=== PATIENT | female | born 1995 | race Caucasian/White ===

== ENCOUNTER 2025-08-09 15:09 | Emergency (ER) | payer BC, SELFPAY ==
[2025-08-09 15:16] VITALS: BP 144/99; PULSE 98; TEMP 37; O2SAT 97; BMI 41.6
--- NOTE | 2025-08-09 15:33 | CT_ITS ---
The [address] [address] Patient Name: MIK SAUCEDO MRN: [id number] date: 1995 Sex: F Assigned Patient Location: ED.MAIN Current Patient Location: ED.MAIN Accession/Order Number: [id number] Exam Date: 08/09/2025 16:30 Report Date: 08/09/2025 16:59 At the request of: KENDELL ISBELL Procedure: CT soft tissue neck w con CT soft tissue neck w con 08/09/2025 4:35 PM SIGNS AND SYMPTOMS: ^R Lower jaw abscess, [place] teeth removed 2 mo ago CONTRAST: TECHNIQUE: Multidetector CT axial slices of the soft tissues of the neck were obtained with IV contrast. Sagittal and coronal reformats were reconstructed. CT was performed with one or more of the following dose reduction techniques: Automated exposure control, adjustment of the mA and/or kV according to patient size, or use of iterative reconstruction technique. COMPARISON: None FINDINGS: Evidence Of Bilateral Mandibular And Maxillary Third Molar Extraction. At The Level Of The Right Maxillary Third Molar Resection Site, There Is Evidence Of Cellulitis Within The Adjacent Soft Tissues Notably At Along The Right Masseter Muscle And Right Platysma Muscle. No Loculated Or Enhancing Fluid Identified To Suggest Abscess Measures. No Underlying Osseous Erosions Involving The Mandible As Visualized. The nasopharynx, oropharynx, hypopharynx, glottic, and subglottic regions are unremarkable. The parotid glands, submandibular, and the thyroid gland are within normal limits. The visualized lung parenchyma shows no acute pathology. No acute bony abnormalities are appreciated. CT/CT soft tissue neck w con IMPRESSION: Right sided cellulitis involving the submandibular space and the director records management space. No definite abscess identified this time. Impression dictated by: Fletcher Gaviria M.D. 08/09/2025 4:59 PM Dictation Location: [place] [address] Electronically authenticated by: [id number] Y Date: 08/09/2025 16:59
--- NOTE | 2025-08-09 15:45 | ED.GENADUL1 ---
HPI HPI - General Adult General Chief complaint: Dental/Oral Stated complaint: WISDOM TEETH OUT/ PROBLEMS FROM IT Time Seen by Provider: 08/09/25 15:15 Source: patient Mode of arrival: walk-in Limitations: no limitations History of Present Illness HPI narrative: 29-year-old female presents to the emergency department with complaints of right lower jaw pain that developed this morning. She reports nausea and cold sweats with this. She did have all 4 of her wisdom teeth removed 2 months ago at [facility]. She had an infection in the right lower wisdom tooth area about a month ago. The oral surgeon did an I&D and placed her on Augmentin. She has not had an issue until this morning and states that she was able to express some yellowish fluid through her gum this morning by pushing on her jaw. She did present initially to urgent care who referred her here. Related Data Previous Rx's ?Medication ?Instructions ?Recorded amoxicillin 875 mg-potassium 1 tab PO BID 10 days #20 tabs 08/09/25 clavulanate 125 mg tablet Allergies Allergy/AdvReac Type Severity Reaction Status Date / Time No Known Drug Allergies Allergy Verified 08/09/25 15:16 Opioid HPI Opioid Management Most Recent Opioid Data: Last Pain Scale 5 Today, 15:54 Last MAR Pain Assessment Today, 15:54 Review of Systems ROS Status of ROS 10 or more systems reviewed and unremarkable except as noted in history and below PFSH PFSH Social History Little interest or pleasure in doing things: not at all Feeling down, depressed, or hopeless: not at all Exam Narrative Exam Narrative: General: No distress, age-appropriate Skin: Warm, dry, no pallor. No rash. Head: Normocephalic, atraumatic. Neck: Supple, mild right shoulder tenderness, swelling as compared to the contralateral side Eye: Pupils are equal, round and EOMI. No scleral icterus. Ears, Nose, Mouth, and Throat: No nasal mucosal hypertrophy. Oral mucosa is moist, mild oropharynx erythema on the right with right mild tonsillar swelling, uvula is mid-line. Cardiovascular: Regular Rate and Rhythm without murmur, gallop or rub. Respiratory: No accessory muscle use or respiratory distress. Lungs are clear to auscultation, no wheezing, rales or rhonchi Musculoskeletal: Full ROM of all extremities, no calf or popliteal tenderness Neurological: A&O x4. No cranial nerve dysfunction observed. No truncal ataxia. Moves all extremities. Sensation intact. Psychiatric: Cooperative and interactive. Normal mood and affect. Constitutional Vital Signs, click to edit/add: Last Vital Signs Temp 98.6 F 08/09/25 15:16 Pulse 85 08/09/25 18:06 Resp 16 08/09/25 18:06 BP 116/88 08/09/25 18:06 Pulse Ox 98 08/09/25 18:06 O2 Del Method Room Air 08/09/25 18:06 Course Vital Signs Vital signs: Vital Signs Temperature 98.6 F 08/09/25 15:16 Pulse Rate 98 H 08/09/25 15:16 Respiratory Rate 16 08/09/25 15:16 Blood Pressure 144/99 H 08/09/25 15:16 Pulse Oximetry 97 08/09/25 15:16 Oxygen Delivery Method Room Air 08/09/25 15:16 Temperature 98.6 F 08/09/25 15:16 Pulse Rate 85 08/09/25 18:06 Respiratory Rate 16 08/09/25 18:06 Blood Pressure 116/88 08/09/25 18:06 Pulse Oximetry 98 08/09/25 18:06 Oxygen Delivery Method Room Air 08/09/25 18:06 Medical Decision Making MDM Narrative Medical decision making narrative: This is a 29-year-old female that presented to the ED with complaints of right-sided jaw pain and swelling that started this morning. She reports nausea and cold sweats as well. She did have a 4 wisdom teeth removed 2 months ago. She reports she had a right lower jaw infection 1 month ago where it sounds like they did an I&D and placed her on Augmentin. She has not had an issue until this morning. On arrival patient is in no distress, there is swelling to the right lower jaw as compared contralaterally. Vital signs are hemodynamically stable. Temperature is afebrile at 98.6 ?F. There is some tonsillar swelling and erythema on the Right. Airway is patient, patient denies SOB or throat swelling feeling. IV placed. Zofran 4mg and Toradol 30mg given IV. CT Neck soft tissue w/ contrast ordered as well as hCG, CBC, and BMP. Labs: No leukocytosis, WBC 9.3, BMP WNL CT soft tissue neck with IV contrast reviewed and notes no abscess, but cellulitis involving the submandibular space and the commercial floor covering installer spaces. 3 g IV Unasyn ordered and given. On reexam patient still reports no issues with swallowing/breathing, there is no increased swelling to the right lower jaw. Pain is controlled. Admission was considered but not indicated as there is no airway compromise (trismus, drooling, tongue elevation, stridor, muffled voice), no rapidly increasing swelling, no fever or systemic signs of infection. Return to the ED precautions were discussed such as trouble swallowing or breathing, shortness of breath, worsening swelling, or uncontrolled pain. Augmentin was prescribed at discharge with plan for close follow up with [facility] within 24-28hrs, who did her wisdom tooth removal. Patient was discharged in stable condition. Differential Diagnosis Differential Diagnosis: Recurrent dental/alveolar abscess, facial cellulitis, Neal's angina Lab Data Lab results reviewed: Yes I reviewed the patient's lab results Labs: Lab Results 08/09/25 Range/Units 15:46 WBC 9.3 (4.0-11.0) 10^3/uL RBC 4.69 (4.20-5.40) 10^6/uL Hgb 14.4 (12.0-16.0) g/dL Hct 42.4 (36.0-48.0) % MCV 90.4 (81.0-99.0) fL MCH 30.7 (26.7-34.0) pg MCHC 34.0 (29.9-35.2) g/dL RDW 12.8 (11.0-15.0) % Plt Count 295 (150-450) 10^3/uL MPV 10.3 (9.5-13.5) fL Neut % (Auto) 69.5 (43.0-75.0) % Lymph % (Auto) 23.1 (20.5-60.0) % [place] % (Auto) 5.7 (1.7-12.0) % Eos % (Auto) 1.1 (0.9-7.0) % Baso % (Auto) 0.4 (0.2-2.0) % Neut # (Auto) 6.5 (1.4-6.5) 10^3/uL Lymph # (Auto) 2.2 (1.2-3.8) 10^3/uL [place] # (Auto) 0.5 (0.3-0.8) 10^3/uL Eos # (Auto) 0.1 (0.0-0.7) 10^3/uL Baso # (Auto) 0.0 (0.0-0.1) 10^3/uL Abs Immat Gran (auto) 0.02 (0.00-0.03) 10^3/uL Imm/Tot Granulo (auto) 0.2 (0.0-0.5) % Sodium 137 (136-145) mmol/L Potassium 4.0 (3.5-5.1) mmol/L Chloride 101 (98-107) mmol/L Carbon Dioxide 24.0 (21.0-32.0) mmol/L Anion Gap 16.0 BUN 8.0 (7.0-18.0) mg/dL Creatinine 0.73 (0.55-1.02) mg/dL Est GFR ( Amer) >60 (>=60 mL/min/1.73m^2) Est GFR (Non-Af Amer) >60 (>=60 mL/min/1.73m^2) BUN/Creatinine Ratio 11.0 Glucose 94 (74-106) mg/dL Calcium 9.2 (8.5-10.1) mg/dL Serum HCG, Qual Negative (NEGATIVE) Imaging Data CT soft tissue neck with contrast: Attestation: I have reviewed the pertinent imaging results. Radiologist's impression: ITS Impressions Soft Tissue Neck CT 08/09/25 15:33 IMPRESSION: Right sided cellulitis involving the submandibular space and the commercial floor covering installer space. No definite abscess identified this time. Impression dictated by: Fletcher Gaviria M.D. 08/09/2025 4:59 PM Dictation Location: [place] [address] Electronically authenticated by: [id number] Y Date: 08/09/2025 16:59 Discharge Plan Discharge Chief Complaint: Dental/Oral Clinical Impression: Cellulitis of jaw, right Patient Disposition: Home, Self-Care Time of Disposition Decision: 17:38 Condition: Good Mode of Transportation: Private Vehicle Prescriptions / Home Meds: New amoxicillin-pot clavulanate 875-125 mg tablet 1 tab PO BID 10 Days Qty: 20 0RF Print Language: Turkish Instructions: Cellulitis (ED) Additional Instructions: Your CT scan of your neck soft tissues notes that you have cellulitis involving the submandibular space and the commercial floor covering installer space. No definite abscess identified this time. Take all antibiotics as prescribed to completion even if your symptoms improve or resolve. Call 911 or go to the nearest ED if you develop: Difficulty breathing, swallowing, or speaking Drooling, severe jaw/neck swelling, or tongue elevation Fever, chills, or worsening pain Red streaks or rapidly spreading redness Referrals: [facility] [Other] - As soon as possible Referral Note: Call for follow up within 24-48 hours. Physician,Non-Staff, MD [Primary Care Provider] - 1 week Discharge Date/Time: 08/09/25 18:09
--- OUTSIDE RECORDS SUMMARY | 2025-08-09 15:48 | XMS_ITS | Clinical Summary ---
Author Organization [facility] tem Address [facility] [id number] [address] [place] [address] Care Team Providers Care Social Services Analyst Name Role Phone No Pcp, No Pcp Primary Care Provider Unavailabl e Allergies No known active allergies Medications MedicationSigDispense QuantityRefillsLast FilledStart DateEnd DateStatus ondansetron ODT (ZOFRAN-ODT) 4 mg disintegrating tablet Dissolve 1 tablet (4 mg total) on tongue every 8 (eight) hours as needed for nausea for up to 10 doses. 10 tablet 08/25/2017Active Additional Information Patient not taking.Reported on 12/23/2020 dicyclomine (BENTYL) 20 mg tablet Take 1 tablet (20 mg total) by mouth 2 (two) times a day. 20 tablet 12/23/2020ctive Active Problems No known active problems Social History Tobacco UseTypesPacks/DayYears UsedDateSmoking Tobacco: Every DayCigarettes Smokeless Tobacco: NeverAlcohol UseStandard Drinks/WeekCommentsNo0 (1 standard drink = 0.6 oz pure alcohol)ChildcareAnswerDate RecordedChildcareUnknown 03/23/2019EmploymentAnswerDate FafnxiovMiiyofbzemJxlptvp07/12/2019Purpose - Life AnswerDate RecordedPurpose and direction in yhscBcooqal08/11/2021 CommentsNoSex and Gender InformationValueDate RecordedSex Assigned at BirthNot on fileLegal BxiZsduqb75/06/2015 11:53 AM EDTGender IdentityNot on fileSexual OrientationNot on file Last Filed Vital Signs Vital SignReadingTime TakenCommentsBlood Clhrqixd751/8103 4:27 PM EDT Ouflb15431 4:27 PM ZUWSiwoyqtwozm20.7 ??C (98 ??F)12/23/2020 3:04 PM EDT Respiratory Ommb405612/23/2020 4:27 PM EDTOxygen Bxnhveqnqd39%12/23/2020 4:27 PM EDTInhaled Oxygen Concentration--Gqklyz84.6 kg (180 lb)12/23/2020 3:04 PM EDT Gqdclx142.6 cm (5' 6 )12/23/2020 3:04 PM EDTBody Mass Index29.05012/23/2020 3:04 PM EDT Plan of Treatment Health MaintenanceDue DateLast DoneCommentsDepression Owsoheepz89/17/2009Tobacco Mjwmyaiig37/17/2009dult BMI Gnvsycdjy30/17/2015DTaP,Tdap and Td Vaccines (1 - Tdap)2016Pap Smear2018Influenza Utkjmcv5106/12/2025 Medical Devices Not on file Insurance * Guarantor: Michel Gtz TypeRelation to PatientDate of PhoneBilling AddressPersonal/FgnaxbNplh1995 [id number] [place] [address] Care Teams Team MemberRelationshipSpecialtyStart DateEnd Date No Pcp, [place] [address] PCP - GeneralFamily Tfmugcdh66/14/17
[2025-08-09] MEDS: KETOROLAC TROMETHAMINE 30 MG/ML VIAL IVP (15:54)
[2025-08-09 15:58] LABS: Hematocrit 42.4 % (36.0-48.0); Hemoglobin 14.4 g/dL (12.0-16.0); Immature Granulocytes Abs Auto 0.02 10^3/uL (0.00-0.03); Immature Granulocytes Pct Auto 0.2 % (0.0-0.5); Lymphocytes Absolute Auto 2.2 10^3/uL (1.2-3.8); Mean Corpuscular HGB Conc 34.0 g/dL (29.9-35.2); Mean Corpuscular Hemoglobin 30.7 pg (26.7-34.0); Mean Corpuscular Volume 90.4 fL (81.0-99.0); Platelet Count 295 10^3/uL (150-450); Red Blood Count 4.69 10^6/uL (4.20-5.40); White Blood Count 9.3 10^3/uL (4.0-11.0)
[2025-08-09 16:09] LABS: Anion Gap 16.0; Blood Urea Nitrogen 8.0 mg/dL (7.0-18.0); Calcium 9.2 mg/dL (8.5-10.1); Carbon Dioxide 24.0 mmol/L (21.0-32.0); Chloride 101 mmol/L (98-107); Estimated GFR (African America >60 (>=60 mL/min/1.73m^2); Estimated GFR (Non-African Ame >60 (>=60 mL/min/1.73m^2); Glucose 94 mg/dL (74-106); Potassium 4.0 mmol/L (3.5-5.1); Sodium 137 mmol/L (136-145)
[2025-08-09 16:40] VITALS: BP 131/70; PULSE 76; O2SAT 97
[2025-08-09] MEDS: AMPICILLIN SODIUM/SULBACTAM NA 3 GM in 0.9 % SODIUM CHLORIDE 100 ML IV (17:14)
[2025-08-09 18:06] VITALS: BP 116/88; PULSE 85; O2SAT 98
== END 2025-08-09 18:09 | disposition home or self-care (01) ==
PROVIDERS: Physician Assistant; Emergency Provider Emergency Medicine
DX: L03.211 Cellulitis of face (principal); R68.84 Jaw pain; R11.0 Nausea
CPT/HCPCS: 36415; 70491; 80048; 84703; 85025; 96365; 96375; 99285; J0295; J1885; J2405; Q9967